=== PATIENT | male | born 1965 | race Caucasian/White ===

== ENCOUNTER 2017-07-14 11:56 | Emergency (ER) | payer BC, MEDICAID ==
[2017-07-14] MEDS ORDERED: Sodium Chloride 0.9% 10 ML Syringe FLUSH PRN (11:57)
[2017-07-14] MEDS ORDERED: LORazepam 1 MG Tab PO ONE ×2 (11:57→12:58)
[2017-07-14] MEDS ORDERED: Lisinopril 10 MG Tab PO ONE ×2 (12:04→13:34)
--- NOTE | 2017-07-14 12:08 | EDM.PDOC ---
ED HPI GENERAL MEDICAL PROBLEM - General Chief Complaint: Neurological Problem Stated Complaint: SEIZURE Time Seen by Provider: 07/14/17 12:00 Source of Information: Reports: Patient, EMS, Old Records, Other (friend) History Limitations: Reports: Other (poor historian) - History of Present Illness INITIAL COMMENTS - FREE TEXT/NARRATIVE: 51 yo male presents via EMS after a witnessed self-limited seizure at work today. Has no hx of seizures. Has a pHx of HTN, but is not recently taking his meds. Admits to drinking a 6 pack of beer every evening. Denies tobacco use. No recent illness. Denies current ALANIS. 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 (see below) (none) - Related Data Allergies Allergy/AdvReac Type Severity Reaction Status Date / Time No Known Allergies Allergy Verified 07/14/17 12:41 Home Meds: Home Meds Albuterol Sulfate [Ventolin Hfa] 2 puff INH Q4HR PRN 07/14/17 [History] Diclofenac Sodium 75 mg PO BID PRN 07/14/17 [History] Lisinopril [Lisinopril] 10 mg PO BID 07/14/17 [History] Past Medical History Cardiovascular History: Reports: Hypertension Respiratory History: Reports: SOB - Past Surgical History Musculoskeletal Surgical History: Reports: Hip Replacement, Knee Replacement Social & Family History - Tobacco Use Smoking Status *Q: Former Smoker - Alcohol Use Number of Drinks Per Day: 1 - Recreational Drug Use Recreational Drug Use: No ED ROS GENERAL - Review of Systems Review Of Systems: See Below Constitutional: Reports: No Symptoms HEENT: Reports: No Symptoms Respiratory: Reports: No Symptoms Cardiovascular: Reports: No Symptoms Endocrine: Reports: No Symptoms GI/Abdominal: Reports: No Symptoms : Reports: No Symptoms Musculoskeletal: Reports: No Symptoms Skin: Reports: No Symptoms Neurological: Reports: Seizure Psychiatric: Reports: No Symptoms - Physical Exam Exam: See Below Exam Limited By: No Limitations General Appearance: Alert, WD/WN, No Apparent Distress, Obese Eye Exam: Bilateral Eye: Conjunctival Injection, EOMI, PERRL Ears: Normal External Exam, Normal Canal, Hearing Grossly Normal Nose: Normal Inspection, Normal Mucosa, No Blood Throat/Mouth: Normal Inspection, Normal Lips, Normal Teeth, Normal Oropharynx, Normal Voice, No Airway Compromise Head Exam: Atraumatic, Normocephalic, Sinus Tenderness Neck: Normal Inspection, Supple Respiratory/Chest: No Respiratory Distress, Lungs Clear, Normal Breath Sounds, No Accessory Muscle Use Cardiovascular: Tachycardia, Other (Trace bilat pitting edema to both legs below the knees.) GI/Abdominal: Normal Bowel Sounds, Soft, Non-Tender, Other (Obese) Neuro Exam (Abbreviated): Alert, Oriented, CN II-XII Intact, Normal Cognition, No Motor/Sensory Deficits Back Exam: Normal Inspection. No: CVA Tenderness (R), CVA Tenderness (L) Extremities: Other (trace edema of both legs below the knees.) Psychiatric: Normal Affect, Normal Mood Skin Exam: Warm, Dry, Intact, Normal Color, No Rash, Other (marie complexion.) Course - Vital Signs Text/Narrative:: Accepted @ [facility], transport via private vehicle @ 1453h Last Recorded V/S: Last Vital Signs Temp 36.5 C 07/14/17 12:53 Pulse 122 H 07/14/17 12:53 Resp 22 H 07/14/17 12:53 BP 174/108 H 07/14/17 13:42 Pulse Ox 98 07/14/17 12:34 - Orders/Labs/Meds Orders: Active Orders 24 hr Category Date Time Status Cardiac Monitoring [RC] .As Directed Care 07/14/17 11:57 Active Sodium Chloride 0.9% [Saline Flush] Med 07/14/17 11:57 Active 10 ml FLUSH ASDIRECTED PRN Saline Lock Insert [OM.PC] Routine Oth 07/14/17 11:57 Ordered Medication Orders Sodium Chloride (Saline Flush) 10 ml FLUSH ASDIRECTED PRN PRN Reason: Keep Vein Open Last Admin: 07/14/17 12:30 Dose: 10 ml Labs: Laboratory Tests 07/14/17 07/14/17 07/14/17 Range/Units 12:05 12:05 12:05 WBC 7.2 (4.5-12.0) X10-3/uL RBC 4.46 (4.30-5.75) x10(6)uL Hgb 15.7 H (11.5-15.5) g/dL Hct 46.2 (30.0-51.3) % MCV 103.5 H (80-96) fL MCH 35.2 H (27.7-33.6) pg MCHC 34.0 (32.2-35.4) g/dL RDW 12.6 (11.5-15.5) % Plt Count 176 (125-369) X10(3)uL Sodium 133 L (135-145) mmol/L Potassium 3.8 (3.5-5.3) mmol/L Chloride 92 L (100-110) mmol/L Carbon Dioxide 24 (23-29) mmol/L BUN 7 (5-20) mg/dL Creatinine 0.9 (0.6-1.3) mg/dL Est Cr Clr Drug Dosing 112.90 mL/min Estimated GFR (MDRD) > 60 (>60) BUN/Creatinine Ratio 7.8 L (9-20) Glucose 166 H (80-116) mg/dL Calcium 9.3 (8.6-10.2) mg/dL Total Bilirubin 1.7 H (0.1-1.3) mg/dL AST 76 H (5-27) IU/L ALT 52 H (14-26) IU/L Alkaline Phosphatase 58 (56-112) IU/L Total Protein 8.2 H (6.0-8.0) g/dL Albumin 4.6 (3.5-5.2) g/dL Globulin 3.6 g/dL Albumin/Globulin Ratio 1.3 Urine Color (YELLOW) Urine Appearance (CLEAR) Urine pH (5.0-6.5) Ur Specific [place] (1.010-1.025) Urine Protein (NEGATIVE) mg/dL Urine Glucose (UA) (NEGATIVE) mg/dL Urine Ketones (NEGATIVE) mg/dL Urine Occult Blood (NEGATIVE) Urine Nitrite (NEGATIVE) Urine Bilirubin (NEGATIVE) Urine Urobilinogen (NEGATIVE) mg/dL Ur Leukocyte Esterase (NEGATIVE) Urine RBC (0) Urine WBC (0) Ur Squamous Epith Cells (NS,R,O) Urine Bacteria (NS) Hyaline Casts (NS) Urine Mucus (NS) Urine Opiates Screen (NEGATIVE) Ur Oxycodone Screen (NEGATIVE) Ur Propoxyphene Screen (NEGATIVE) Ur Barbituates Screen (NEGATIVE) Ur Tricyclics Screen (NEGATIVE) Ur Phencyclidine Scrn (NEGATIVE) Ur Amphetamine Screen (NEGATIVE) Urine MDMA Screen (NEGATIVE) U Benzodiazepines Scrn (NEGATIVE) U Cocaine Metab Screen (NEGATIVE) U Marijuana (THC) Screen (NEGATIVE) Ethyl Alcohol < 0.01 (<0.01) % 07/14/17 07/14/17 Range/Units 12:38 12:38 WBC (4.5-12.0) X10-3/uL RBC (4.30-5.75) x10(6)uL Hgb (11.5-15.5) g/dL Hct (30.0-51.3) % MCV (80-96) fL MCH (27.7-33.6) pg MCHC (32.2-35.4) g/dL RDW (11.5-15.5) % Plt Count (125-369) X10(3)uL Sodium (135-145) mmol/L Potassium (3.5-5.3) mmol/L Chloride (100-110) mmol/L Carbon Dioxide (23-29) mmol/L BUN (5-20) mg/dL Creatinine (0.6-1.3) mg/dL Est Cr Clr Drug Dosing mL/min Estimated GFR (MDRD) (>60) BUN/Creatinine Ratio (9-20) Glucose (80-116) mg/dL Calcium (8.6-10.2) mg/dL Total Bilirubin (0.1-1.3) mg/dL AST (5-27) IU/L ALT (14-26) IU/L Alkaline Phosphatase (56-112) IU/L Total Protein (6.0-8.0) g/dL Albumin (3.5-5.2) g/dL Globulin g/dL Albumin/Globulin Ratio Urine Color Yellow (YELLOW) Urine Appearance Clear (CLEAR) Urine pH 6.5 (5.0-6.5) Ur Specific [place] 1.015 (1.010-1.025) Urine Protein 100 H (NEGATIVE) mg/dL Urine Glucose (UA) Normal (NEGATIVE) mg/dL Urine Ketones 15 H (NEGATIVE) mg/dL Urine Occult Blood Moderate H (NEGATIVE) Urine Nitrite Negative (NEGATIVE) Urine Bilirubin Negative (NEGATIVE) Urine Urobilinogen 1 H (NEGATIVE) mg/dL Ur Leukocyte Esterase Negative (NEGATIVE) Urine RBC 5-10 (0) Urine WBC 0-5 (0) Ur Squamous Epith Cells Rare (NS,R,O) Urine Bacteria Rare H (NS) Hyaline Casts Few H (NS) Urine Mucus Rare H (NS) Urine Opiates Screen Negative (NEGATIVE) Ur Oxycodone Screen Negative (NEGATIVE) Ur Propoxyphene Screen Negative (NEGATIVE) Ur Barbituates Screen Negative (NEGATIVE) Ur Tricyclics Screen Negative (NEGATIVE) Ur Phencyclidine Scrn Negative (NEGATIVE) Ur Amphetamine Screen Negative (NEGATIVE) Urine MDMA Screen Negative (NEGATIVE) U Benzodiazepines Scrn Negative (NEGATIVE) U Cocaine Metab Screen Negative (NEGATIVE) U Marijuana (THC) Screen Negative (NEGATIVE) Ethyl Alcohol (<0.01) % Meds: Medications Generic Name Dose Route Start Last Admin Trade Name Freq PRN Reason Stop Dose Admin Sodium Chloride 10 ml 07/14/17 11:57 07/14/17 12:30 Saline Flush FLUSH 10 ml ASDIRECTED PRN Administration Keep Vein Open Discontinued Medications Generic Name Dose Route Start Last Admin Trade Name Freq PRN Reason Stop Dose Admin Lactated Ringer's 1,000 mls @ 1,000 mls/hr 07/14/17 12:30 07/14/17 12:52 Ringers, Lactated IV 07/14/17 13:29 1,000 mls/hr BOLUS ONE Administration Lisinopril 10 mg 07/14/17 12:04 07/14/17 12:23 Prinivil PO 07/14/17 12:05 10 mg ONETIME ONE Administration Lisinopril 10 mg 07/14/17 13:34 07/14/17 13:42 Prinivil PO 07/14/17 13:35 10 mg ONETIME ONE Administration Lorazepam 1 mg 07/14/17 11:57 07/14/17 12:25 Ativan PO 07/14/17 11:58 1 mg ONETIME ONE Administration Lorazepam 1 mg 07/14/17 12:58 07/14/17 13:13 Ativan PO 07/14/17 12:59 1 mg ONETIME ONE Administration Thiamine HCl 100 mg 07/14/17 12:31 07/14/17 12:55 Vitamin B-1 PO 07/14/17 12:32 100 mg ONETIME ONE Administration - Radiology Interpretation Free Text/Narrative:: Head CT scan-no acute processes, old lacunar infarct, calcifications present. CT Results Date: 07/14/17 CT Results Time: 12:30 Departure - Departure Time of Disposition: 14:52 Disposition: DC/Tfer to Psych Hosp/Unit 65 Condition: Fair Clinical Impression: Alcohol abuse Alcohol withdrawal seizure Qualifiers: Complication of substance-induced condition: uncomplicated Qualified Code(s): F10.230 - Alcohol dependence with withdrawal, uncomplicated HTN (hypertension) Qualifiers: Hypertension type: other secondary hypertension Qualified Code(s): I15.8 - Other secondary hypertension - Discharge Information Referrals: Jami Be NP [Primary Care Provider] - Forms: ED Department Discharge - My Orders Last 24 Hours: My Active Orders 07/14/17 11:57 Cardiac Monitoring [RC] .As Directed Sodium Chloride 0.9% [Saline Flush] 10 ml FLUSH ASDIRECTED PRN Saline Lock Insert [OM.PC] Routine - Assessment/Plan Last 24 Hours: My Active Orders 07/14/17 11:57 Cardiac Monitoring [RC] .As Directed Sodium Chloride 0.9% [Saline Flush] 10 ml FLUSH ASDIRECTED PRN Saline Lock Insert [OM.PC] Routine
[2017-07-14] MEDS ORDERED: Lactated Ringers 1,000 ML IV ONE (12:30)
[2017-07-14] MEDS ORDERED: Thiamine 100 MG Tab PO ONE (12:31)
[2017-07-14 13:42] VITALS: BP 174/108
--- NOTE | 2017-07-14 13:50 | CT ---
INDICATION: First time seizure. No history of seizures. 5 minutes bluish color, convulsions. CT HEAD WITHOUT CONTRAST: Serial contiguous 2.5 and 5-mm sections were obtained through the brain without contrast. Calcifications are noted in the vertebral and internal carotid arteries. Motion by the patient produced artifact which limited detail somewhat. Total Exam DLP = 949.36 mGy-cm. No shift of midline structures or ventricular abnormalities were identified. In the posterior/inferior basal ganglia on the left, there is an area of decreased density compatible with a lacunar infarct. No other abnormal areas of density were identified - no bleeding site or hematoma was seen. No acute intracranial abnormality was suggested. No cranial abnormality was seen. There is a retention cyst of moderate size in the left maxillary antrum. No finding to suggest sinusitis was identified. The frontal and mastoid air cells were fairly well aerated otherwise. IMPRESSION: 1. No acute intracranial abnormality. 2. Motion limited some of the images detail. 3. Cerebrovascular disease. 4. Probable lacunar infarct left basal ganglia. Report was called to Dr. Kaur soon after the examination was completed, 2016. [facility] CENTERMannie
== END 2017-07-14 15:00 ==
LOC: FB.ED 11:56
DX: F10.231 Alcohol dependence with withdrawal delirium (principal); R56.9 Unspecified convulsions; I15.8 Other secondary hypertension; Z87.891 Personal history of nicotine dependence
CPT/HCPCS: 36415; 70450; 80053; 80305; 81001; 85027; 96360; 99285; A9270; G0480; J7050; J7120

== ENCOUNTER 2020-04-26 14:25 | Emergency (ER) | payer BC ==
--- NOTE | 2020-04-26 14:45 | EDM.PDOC ---
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, no injury, not able to work x 5d, not able to walk at times localized mid lower back, no radiation h/o alc abuse, has had electrolyte abnormalities in past, will recheck not taken any meds, had been on diclofenac in past, not currently PCP Kristen Be [facility] CV: htn NEURO: alc withdrawal szs 3u ago BEH: alc abuse HEME: macrocytosis RECENT MEDS IN [facility] CV: lis 40 bid ORTHO: diclofenac 75/d MOST RECENT LABS IN [facility] IMAGING IN [facility] [address] with calcifications in vert and ICAs, pos/inf basal ganglia dec'd density c/w lacunar infarct, cerbrovascular disease no other imaging RECENT LABS IN [facility] 3y ago with hgb 7.2, hgb 15.7, plt 176, MCV 103.5, no comparison 3y ago with na 133, cl 92, glu 166, tbili 1.7, AST 76, ALT 52, TP 8.2 3y ago u/a with 15 mg/dl ketones 3y ago utox neg, ethanol neg MPMP neg x 1y Lower Back Pain Score (Numeric/FACES): 10 - Related Data Allergies Allergy/AdvReac Type Severity Reaction Status Date / Time No Known Allergies Allergy Verified 07/14/17 12:41 Home Meds: Home Meds Diclofenac Sodium 75 mg PO DAILY 07/14/17 [History] Lisinopril 40 mg PO BID 07/14/17 [History] Past Medical History Cardiovascular History: Reports: Hypertension Respiratory History: Reports: SOB - Past Surgical History Musculoskeletal Surgical History: Reports: Hip Replacement, Knee Replacement Social & Family History - Caffeine Use Caffeine Use: Reports: None ED ROS GENERAL - Review of Systems Review Of Systems: See Below Constitutional: Reports: No Symptoms HEENT: Reports: No Symptoms Respiratory: Reports: No Symptoms Cardiovascular: Reports: No Symptoms Endocrine: Reports: No Symptoms GI/Abdominal: Reports: No Symptoms : Reports: No Symptoms Musculoskeletal: Reports: Back Pain Skin: Reports: No Symptoms Neurological: Reports: No Symptoms Psychiatric: Reports: No Symptoms Hematologic/Lymphatic: Reports: No Symptoms Immunologic: Reports: No Symptoms ED EXAM,LOWER BACK PAIN/INJURY - Physical Exam Exam: See Below Exam Limited By: No Limitations General Appearance: Alert, WD/WN, No Apparent Distress, Other (sit in w/c) Nose: Normal Inspection Throat/Mouth: Normal Inspection, Normal Voice, No Airway Compromise Head: Atraumatic, Normocephalic Neck: Normal Inspection, Supple, Non-Tender, Full Range of Motion. No: Lymphadenopathy (R), Lymphadenopathy (L) Respiratory/Chest: No Respiratory Distress, Lungs Clear, Normal Breath Sounds, No Accessory Muscle Use, Chest Non-Tender Cardiovascular: Regular Rate, Rhythm, No Edema, No Gallop, No Murmur, No Rub GI/Abdominal: Soft, Non-Tender, No Distention Back Exam: Normal Inspection. No: CVA Tenderness (R), CVA Tenderness (L) Extremities: Other (1+ tightness of back, 1+ tender at R SI joint, 1+ tender in midline over sacrum, L SI joint NT, iliac crests NT, l-spine NT) Course - Vital Signs Last Recorded V/S: Last Vital Signs Temp 36.8 C 04/26/20 14:50 Pulse 114 H 04/26/20 14:50 Resp 18 04/26/20 14:50 BP 151/93 H 04/26/20 14:50 Pulse Ox 96 04/26/20 14:50 - Orders/Labs/Meds Orders: Active Orders 24 hr Category Date Time Status Lumbar Spine 2 or 3V [CR] Stat Exams 04/26/20 14:58 Taken Sodium Chloride 0.9% [Saline Flush] Med 04/26/20 14:57 Ordered 10 ml FLUSH ASDIRECTED PRN Saline Lock Insert [OM.PC] Routine Oth 04/26/20 14:57 Ordered Medication Orders Sodium Chloride (Saline Flush) 10 ml FLUSH ASDIRECTED PRN PRN Reason: Keep Vein Open Last Admin: 04/26/20 15:53 Dose: 10 ml Documented by: Labs: Laboratory Tests 04/26/20 04/26/20 04/26/20 Range/Units 15:10 15:10 15:10 WBC 5.2 (4.5-12.0) X10-3/uL RBC 4.06 L (4.30-5.75) x10(6)uL Hgb 14.8 (13.5-17.8) g/dL Hct 45.2 (30.0-51.3) % MCV 111.1 H (80-96) fL MCH 36.3 H (27.7-33.6) pg MCHC 32.7 (32.2-35.4) g/dL RDW 13.6 (11.5-15.5) % Plt Count 217 (125-369) X10(3)uL MPV 6.5 L (7.4-10.4) fL Neut % (Auto) 42.2 L (46-82) % Lymph % (Auto) 43.5 H (13-37) % Jewell % (Auto) 11.5 (4-12) % Eos % (Auto) 2 (1.0-5.0) % Baso % (Auto) 1 (0-2) % Neut # (Auto) 2.2 (1.6-8.3) # Lymph # (Auto) 2.2 (0.6-5.0) # Jewell # (Auto) 0.6 (0.0-1.3) # Eos # (Auto) 0.1 (0.0-0.8) # Baso # (Auto) 0.1 (0.0-0.2) # Sodium 143 (135-145) mmol/L Potassium 3.5 (3.5-5.3) mmol/L Chloride 101 (100-110) mmol/L Carbon Dioxide 31 (21-32) mmol/L BUN 11 (7-18) mg/dL Creatinine 0.9 (0.70-1.30) mg/dL Est Cr Clr Drug Dosing 109.09 mL/min Estimated GFR (MDRD) > 60 (>60) BUN/Creatinine Ratio 12.2 (9-20) Glucose 122 H (80-116) mg/dL Calcium 9.6 (8.6-10.2) mg/dL Magnesium 1.0 L* (1.8-2.5) mg/dL Total Bilirubin 0.6 (0.1-1.3) mg/dL AST 86 H (5-25) IU/L ALT 64 H (12-36) U/L Alkaline Phosphatase 59 (56-112) IU/L C-Reactive Protein < 0.2 L (0.5-0.9) mg/dL Total Protein 7.7 (6.0-8.0) g/dL Albumin 4.0 (3.5-5.2) g/dL Globulin 3.7 g/dL Albumin/Globulin Ratio 1.1 Meds: Medications Generic Name Dose Route Start Last Admin Trade Name Freq PRN Reason Stop Dose Admin Sodium Chloride 10 ml 04/26/20 14:57 04/26/20 15:53 Saline Flush FLUSH 10 ml ASDIRECTED PRN Administration Keep Vein Open Discontinued Medications Generic Name Dose Route Start Last Admin Trade Name Freq PRN Reason Stop Dose Admin Acetaminophen 650 mg 04/26/20 14:57 04/26/20 15:10 Tylenol PO 04/26/20 14:58 650 mg NOW ONE Administration Magnesium Sulfate 4 gm/ Premix 50 mls @ 150 mls/hr 04/26/20 15:32 04/26/20 15:53 IV 04/26/20 15:33 150 mls/hr ONETIME ONE Administration Ketorolac Tromethamine 30 mg 04/26/20 14:57 04/26/20 15:10 Toradol IVPUSH 04/26/20 14:58 30 mg ONETIME ONE Administration - Re-Assessments/Exams Free Text/Narrative Re-Assessment/Exam: 04/26/20 17:30 long discussion on alc use and benefits of tx pgms pt did not request a work note has had TKR x1 and THR x 1 pt has sig DJD of hands, particularly left use if APAP and ibuprofen reviewed given 4 gm of Mg IV and 40 meq KCl PO pt felt better after Toradol 30 mg IV and APAP 650 mg PO Departure - Departure Time of Disposition: 17:30 Disposition: Home, Self-Care 01 Condition: Good Clinical Impression: Inflammation of right sacroiliac joint, Low back strain, Osteoarthritis of lumbar spine, Hypomagnesemia, Macrocytosis, Elevated liver function tests - Discharge Information *PRESCRIPTION DRUG MONITORING PROGRAM REVIEWED*: Yes *COPY OF PRESCRIPTION DRUG MONITORING REPORT IN PATIENT LUCIE: Yes Instructions: Sacroiliac Joint Dysfunction, Lumbar Sprain, Osteoarthritis Referrals: Jami Be NP [Primary Care Provider] - Additional Instructions: For pain and inflammation, take acetaminophen 325 mg 2 tabs 4 times a day for 1 week or longer. May use correction if needed. For pain and inflammation, also take ibuprofen 200 mg 2 tabs 4 times a day for 1 week. May take together with the acetaminophen. However, it can be hard on the stomach and kidneys if you take it for too long. Use heat to lower back and pelvis for 10 minutes several times a day. Sleep on a firm mattress. Cut back on the alcohol or stop all together. AA and outpatient treatment programs can be excellent options. See your doctor in 4 days. Sepsis Event Note (ED) - Focused Exam Vital Signs: Vital Signs Temp Pulse Resp BP Pulse Ox 04/26/20 14:50 36.8 C 114 H 18 151/93 H 96 - My Orders Last 24 Hours: My Active Orders 04/26/20 14:57 Sodium Chloride 0.9% [Saline Flush] 10 ml FLUSH ASDIRECTED PRN Saline Lock Insert [OM.PC] Routine 04/26/20 14:58 Lumbar Spine 2 or 3V [CR] Stat - Assessment/Plan Last 24 Hours: My Active Orders 04/26/20 14:57 Sodium Chloride 0.9% [Saline Flush] 10 ml FLUSH ASDIRECTED PRN Saline Lock Insert [OM.PC] Routine 04/26/20 14:58 Lumbar Spine 2 or 3V [CR] Stat
[2020-04-26] MEDS ORDERED: Ketorolac 30 MG/ML SDV IVPUSH ONE (14:57)
[2020-04-26] MEDS ORDERED: Acetaminophen 325 MG Tab PO ONE (14:57)
[2020-04-26] MEDS: Sodium Chloride 0.9% 10 ML Syringe FLUSH PRN ×3 (15:05→15:53)
[2020-04-26] MEDS ORDERED: Magnesium Sulfate/Water 4 GM in Premix Bag 1 BAG IV ONE (15:32)
[2020-04-26] MEDS ORDERED: Potassium Chloride 20 MEQ Tab.ER PO ONE (17:21)
[2020-04-26 18:37] VITALS: BP 117/76; PULSE 92
== END 2020-04-26 17:36 | disposition home or self-care (01) ==
LOC: FB.ED 14:25
DX: S39.012A Strain of muscle, fascia and tendon of lower back, initial encounter (principal); M47.816 Spondylosis without myelopathy or radiculopathy, lumbar region; E83.42 Hypomagnesemia; D75.89 Other specified diseases of blood and blood-forming organs; R79.89 Other specified abnormal findings of blood chemistry; I10 Essential (primary) hypertension; Z79.899 Other long term (current) drug therapy; X58.XXXA Exposure to other specified factors, initial encounter
CPT/HCPCS: 36415; 72100; 80053; 83735; 85025; 86140; 96365; 96366; 96375; 99284-25; A9270-GY; J1885; J3475

== ENCOUNTER 2020-05-02 16:33 | Emergency (ER) | payer BC ==
[2020-05-02] MEDS ORDERED: Ketorolac 60 MG/2 ML SDV IM ONE (17:18)
[2020-05-02] MEDS ORDERED: Cyclobenzaprine 10 MG Tab PO ONE (17:18)
[2020-05-02] MEDS ORDERED: Acetaminophen/oxyCODONE 325-5 MG Tab PO STA (17:18)
[2020-05-02 18:34] VITALS: BP 150/90; PULSE 100
--- NOTE | 2020-05-02 18:36 | EDM.PDOC ---
ED HPI GENERAL MEDICAL PROBLEM - General Chief Complaint: Back Pain or Injury Stated Complaint: BACK PAIN Time Seen by Provider: 05/02/20 16:45 Source of Information: Reports: Patient History Limitations: Reports: No Limitations - History of Present Illness INITIAL COMMENTS - FREE TEXT/NARRATIVE: Patient presented to the ED because of a worsening low back pain. The pain is sharp,10/10 and worse with movements. The pain radiates towards his thigh and legs. There is no recent trauma or injury. Back Pain Score (Numeric/FACES): 10 - Related Data Allergies Allergy/AdvReac Type Severity Reaction Status Date / Time No Known Allergies Allergy Verified 07/14/17 12:41 Home Meds: Home Meds Diclofenac Sodium 75 mg PO DAILY 07/14/17 [History] Lisinopril 40 mg PO BID 07/14/17 [History] Acetaminophen [Tylenol] 650 mg PO DAILY PRN 05/02/20 [History] Cyclobenzaprine [Flexeril] 10 mg PO TID PRN #30 tab 05/02/20 [Rx] Ibuprofen 800 mg PO DAILY PRN 05/02/20 [History] Ibuprofen 800 mg PO TID PRN #30 tablet 05/02/20 [Rx] Past Medical History Cardiovascular History: Reports: Hypertension Respiratory History: Reports: SOB Musculoskeletal History: Reports: Arthritis, Fracture - Past Surgical History Musculoskeletal Surgical History: Reports: Hip Replacement, Knee Replacement Social & Family History - Family History Family Medical History: Noncontributory - Tobacco Use Smoking Status *Q: Unknown Ever Smoked - Caffeine Use Caffeine Use: Reports: None ED ROS GENERAL - Review of Systems Review Of Systems: See Below Constitutional: Reports: No Symptoms HEENT: Reports: No Symptoms Respiratory: Reports: No Symptoms Cardiovascular: Reports: No Symptoms Endocrine: Reports: No Symptoms GI/Abdominal: Reports: No Symptoms : Reports: No Symptoms Musculoskeletal: Reports: Back Pain Skin: Reports: No Symptoms Neurological: Reports: No Symptoms Psychiatric: Reports: No Symptoms ED EXAM,LOWER BACK PAIN/INJURY - Physical Exam Exam: See Below Exam Limited By: No Limitations General Appearance: Alert, No Apparent Distress Ears: Normal External Exam, Normal Canal, Hearing Grossly Normal Nose: Normal Inspection, Normal Mucosa, No Blood Throat/Mouth: Normal Inspection, Normal Lips, Normal Teeth Head: Atraumatic, Normocephalic Neck: Normal Inspection, Supple, Non-Tender Respiratory/Chest: No Respiratory Distress, Lungs Clear, Normal Breath Sounds Cardiovascular: Normal Peripheral Pulses, Regular Rate, Rhythm, No Edema, No Gallop GI/Abdominal: Normal Bowel Sounds, Soft, Non-Tender, No Organomegaly Back Exam: Normal Inspection, Muscle Spasm, Paraspinal Tenderness Course - Vital Signs Text/Narrative:: CT lumbar-spinal stenosis and DDD-see result Percocet 5/325-2 po x1 Toradol 60 mg IM x1 Flexeril 10 mg po x1 Last Recorded V/S: Last Vital Signs Temp 36.5 C 05/02/20 16:44 Pulse 100 05/02/20 18:33 Resp 18 05/02/20 18:33 BP 150/90 H 05/02/20 18:33 Pulse Ox 92 L 05/02/20 18:33 - Orders/Labs/Meds Orders: Active Orders 24 hr Category Date Time Status Lumbar Spine wo Cont [CT] Stat Exams 05/02/20 17:21 Taken Meds: Medications Discontinued Medications Generic Name Dose Route Start Last Admin Trade Name Federicoq PRN Reason Stop Dose Admin Cyclobenzaprine HCl 10 mg 05/02/20 17:18 05/02/20 17:27 Flexeril PO 05/02/20 17:19 10 mg ONETIME ONE Administration Ketorolac Tromethamine 60 mg 05/02/20 17:18 05/02/20 17:26 Toradol IM 05/02/20 17:19 60 mg ONETIME ONE Administration Oxycodone/Acetaminophen 2 tab 05/02/20 17:18 05/02/20 17:26 Percocet 325-5 Mg PO 05/02/20 17:19 2 tab NOW STA Administration Departure - Departure Time of Disposition: 18:35 Disposition: Home, Self-Care 01 Condition: Good Clinical Impression: Spinal stenosis, Degenerative disc disease - Discharge Information Prescriptions: Cyclobenzaprine [Flexeril] 10 mg PO TID PRN #30 tab PRN Reason: Muscle Spasm Ibuprofen 800 mg PO TID PRN #30 tablet PRN Reason: Pain Instructions: Degenerative Disk Disease, Spinal Stenosis, [id number] Referrals: Jami Be NP [Primary Care Provider] - Forms: ED Department Discharge Additional Instructions: Please read discharge instructions on spinal stenosis and degenerative disc disease Take all the following medicines at the same time:Flexeril 10 mg, ibuprofen 800 mg, tylenol 1000 mg every 8 hours as needed for pain and muscle spasm Follow up with your doctor so you cane be referred to the orthopedic doctor f Sepsis Event Note (ED) - Evaluation Sepsis Screening Result: No Definite Risk - Focused Exam Vital Signs: Vital Signs Temp Pulse Resp BP Pulse Ox 05/02/20 18:33 100 18 150/90 H 92 L 05/02/20 16:44 36.5 C 93 16 145/92 H 93 L - My Orders Last 24 Hours: My Active Orders 05/02/20 17:21 Lumbar Spine wo Cont [CT] Stat - Assessment/Plan Last 24 Hours: My Active Orders 05/02/20 17:21 Lumbar Spine wo Cont [CT] Stat
--- NOTE | 2020-05-02 18:47 | CT ---
INDICATION: Severe low back pain. LUMBOSACRAL SPINE CT WITHOUT CONTRAST: Spiral 2.5 mm axial sections were obtained through the lumbosacral spine with sagittal and coronal reconstructions as well as reconstructions angled through the L3-4, L4-5, and L5-S1 disc spaces. The total exam DLP was 1182.49 mGy-cm. There is noted a mild degree of spinal stenosis at the L1-2 level due to hypertrophic changes and prominent ligamentum flavum. More prominent spinal stenosis - moderate is noted at the L2-3 level due to slightly bulging disc, hypertrophic changes and prominent ligamentum flavum. Moderate to moderately severe spinal stenosis is noted at L3-4 due to bulging disc, prominent ligamentum flavum, and hypertrophic degenerative changes. Moderately severe spinal stenosis is noted at L4-5 with grade 1 to 2 anterolisthesis at that level, vacuum disc phenomenon at that level, and fairly marked narrowing of neural foramina at that level. Bulging disc is also noted at L5-S1 but does not appear to be a clinical problem at that level. Hypertrophic changes are noted at the posterior elements at all levels but mild in the upper middle lumbar spine levels and moderately severe to severe at the lower and lower middle levels. Neural foramina are narrowed at the L3-4 through L5-S1 levels. The hypertrophic degenerative changes, sclerosis, and subchondral cystic changes noted at the apophyseal joints are most severe at L3-4, L4-5, and to a lesser extent L5-S1. Hypertrophic changes off vertebral bodies are noted, most prominently anteriorly at L4-5 and L5-S1 and to a much lesser extent in the upper lumbar and mid lumbar levels as well as lower thoracic levels. There also appears to be a mild tilt of the lumbar spine in general to the left which appears to be centered at L4-5. The sacroiliac joints show evidence of moderate osteoarthritis additionally. A definite acute fracture or dislocation was not identified. Vertebral body heights appear to be well maintained except at the L4-5 level where decreased disc space is present. Intervertebral disc spaces are fairly well maintained. There is also vacuum disc phenomenon at L4-5. IMPRESSION: Degenerative changes and disc disease with multiple levels of spinal stenosis. Report was called to Dr. Dumont at 1816 hours. [facility]
== END 2020-05-02 18:48 | disposition home or self-care (01) ==
LOC: FB.ED 16:33
DX: M51.36 Other intervertebral disc degeneration, lumbar region (principal); M48.061 Spinal stenosis, lumbar region without neurogenic claudication; I10 Essential (primary) hypertension; Z79.899 Other long term (current) drug therapy
CPT/HCPCS: 72131; 96372; 99283-25; A9270-GY; J1885